=== PATIENT | female | born 1960 | race Caucasian/White ===

== ENCOUNTER 2019-09-10 16:51 | Outpatient (CLI) | payer OTHER ==
--- NOTE | 2019-09-10 17:31 | RAD ---
RADIOGRAPH CHEST 2 VIEWS: DATE: 09/10/2019 HISTORY: 59-year-old female with syncope. Concern for aspiration. FINDINGS: There is no airspace density, pulmonary edema, pleural effusion, pneumothorax, or cardiomegaly. IMPRESSION: No acute cardiopulmonary findings.
== END 2019-09-10 16:52 | disposition home or self-care (01) ==
LOC: MADEKG 16:51
PROVIDERS: ATTEND Family Medicine
DX: R05 Cough (principal); R55 Syncope and collapse
CPT/HCPCS: 71046; 93005; 93010

== ENCOUNTER 2021-02-28 10:39 | Outpatient (CLI) | payer OTHER ==
[2021-02-28 11:36] LABS: ALT (SGPT) 31 U/L (8-55); AST (SGOT) 16 U/L (5-34); Albumin 4.2 g/dL (3.5-5.0); Alkaline Phosphatase 81 U/L (40-110); Anion Gap 15 mmol/L (10-20); BUN (Urea Nitrogen) 15 mg/dL (9.8-20.1); Bilirubin, Total 0.5 mg/dL (0.2-1.2); Calc. Creatinine Clearance 0 mL/min (70-130); Calcium 9.7 mg/dL (7.8-10.44); Carbon Dioxide 28 mmol/L (22-29); Chloride 104 mmol/L (98-107); Cholesterol 227 mg/dl (< 200 Desired); Globulin 2.7 g/dL (2.4-3.5); Glucose 143 mg/dL (70-105); HDL Cholesterol 57 mg/dL (>60 Neg Risk); LDL Cholesterol, Calculated 150 mg/dL; Potassium 5.1 mmol/L (3.5-5.1); Protein, Total 6.9 g/dL (6.0-8.3); Sodium 142 mmol/L (136-145); Triglycerides 101 mg/dL (Less than 150)
[2021-03-01 13:41] LABS: Hemoglobin A1c 6.7 % (4.0-6.0)
== END 2021-02-28 10:40 | disposition home or self-care (01) ==
LOC: MADLAB 10:39
PROVIDERS: ATTEND Family Medicine
DX: E11.22 Type 2 diabetes mellitus with diabetic chronic kidney disease (principal); N18.30 Chronic kidney disease, stage 3 unspecified; E78.00 Pure hypercholesterolemia, unspecified
CPT/HCPCS: 36415; 80053; 80061; 82306; 83036